=== PATIENT | male | born 1990 | race African-American/Black ===

== ENCOUNTER 2022-08-17 12:57 | Emergency (ER) | payer OTHER ==
[2022-08-17] MEDS ORDERED: Ibuprofen 600 MG Tab PO ONE (16:52)
[2022-08-17] MEDS ORDERED: Ampicillin/Sulbactam Na 3 GM in Sodium Chloride 0.9% 100 ML IV ONE (16:56)
[2022-08-17] MEDS ORDERED: Ampicillin/Sulbactam Na 3 GM Vial ONE (17:30)
[2022-08-17] MEDS ORDERED: Sodium Chloride 0.9% 100 ML ONE (17:31)
[2022-08-17 17:37] LABS: CARBON DIOXIDE,CO2 28.5 mmol/L (21.0-32.0); POTASSIUM,K 3.9 mmol/L (3.5-5.1)
[2022-08-17] MEDS ORDERED: Iopamidol 755 MG/ML 500 ML Multipack Bottle IVPUSH ONE (18:00)
== END 2022-08-17 19:09 | disposition home or self-care (01) ==
LOC: MW.ED 12:57
DX: L03.211 Cellulitis of face (principal)
CPT/HCPCS: 36415; 70487; 80053; 85025; 96365; 99284; A9270; J0295; J3490; Q9967; 99283

== ENCOUNTER 2023-04-25 10:46 | Emergency (ER) | payer OTHER ==
[2023-04-25] MEDS ORDERED: Ketorolac 30 MG/ML SDV IM STA (11:39)
[2023-04-25] MEDS ORDERED: Cyclobenzaprine 10 MG Tab PO STA (11:39)
== END 2023-04-25 12:25 | disposition home or self-care (01) ==
LOC: MW.ED 10:46
DX: M43.6 Torticollis (principal)
CPT/HCPCS: 96372; 99283; A9270; J1885

== ENCOUNTER 2023-07-25 19:22 | Emergency (ER) | payer OTHER ==
[2023-07-25] MEDS ORDERED: Lidocaine 4% 1 each Patch TOP STA (19:27)
[2023-07-25] MEDS ORDERED: Ondansetron 4 MG Tab.DIS PO ONE (19:27)
[2023-07-25] MEDS ORDERED: Acetaminophen/oxyCODONE 325-5 MG Tab PO ONE (19:27)
== END 2023-07-25 21:05 | disposition home or self-care (01) ==
LOC: MW.ED 19:22
DX: S83.91XA Sprain of unspecified site of right knee, initial encounter (principal); Z79.899 Other long term (current) drug therapy; V89.2XXA Person injured in unspecified motor-vehicle accident, traffic, initial encounter; Y92.410 Unspecified street and highway as the place of occurrence of the external cause
CPT/HCPCS: 73562; 99284; A9270; 99283